=== PATIENT | female | born 1950 | race Caucasian/White ===

== ENCOUNTER → 2022-06-21 | Outpatient (CLI) | payer MEDICARE, BC, OTHER | LOC: M PLARAD 11:35 | DX: C50.919 Malignant neoplasm of unspecified site of unspecified female breast (principal); M51.9 Unspecified thoracic, thoracolumbar and lumbosacral intervertebral disc disorder; D43.4 Neoplasm of uncertain behavior of spinal cord; M89.9 Disorder of bone, unspecified | CPT/HCPCS: 78816; A9552 ==